=== PATIENT | female | born 1980 | race Caucasian/White ===

== ENCOUNTER 2022-07-24 04:45 | Emergency (ER) | payer BC, MEDICAID ==
[~2022-07-24] VITALS: Ht 157.5 cm; Wt 90.7 kg
[2022-07-24 04:45] VITALS: BP 146/84
--- NOTE | 2022-07-24 04:47 | NUR ---
PT GABY ALS. TAKEN TO BED 7
--- NOTE | 2022-07-24 04:59 | NUR ---
42/F BIBA FROM [facility] SEIZURES [id number] S/P MEDICATION CHANGE. PER PATIENT SHE WAS TAKING DILANTIN BUT PCP CHANGED PRESCRIPTION TO KEPPRA 2 WEEKS AGO. AFTER THE MEDICATION CHANGE PATIENT HAS BEEN HAVING SMALL 4-5SEC SEIZURES. LAST SEIZURE WAS PILOT [place] PATROL AT 3AM AND 4AM, BOTH LASTED 4SEC LONG ACCORDING TO SON. BLS STATED THAT PATIENT WAS "OUT OF IT" UPON ARRIVAL TO HOME. PATIENT AAOX4 AND AMBULATORY AT THIS TIME. DENIES SOB/CP/N/V/VISUAL CHANGES. PATIETN RR APPEAR TO BE EVEN AND UNLABORED. DOESNT APPEAR TO BE IN DISTRESS. PATIENT PLACED ON MONITOR WITH SEIZURE PRECAUTIONS INITIATED. BED LOW AND LOCKED. SIDE RAILS UP ZENIA FOR SAFETY. PMHX SEIZURE RX KEPPRA, MIRTAZAPINE(SLEEP) NKA
--- NOTE | 2022-07-24 05:13 | NUR ---
Dr. Edwards examining patient.
[2022-07-24 05:41] VITALS: BP 136/80
--- NOTE | 2022-07-24 05:41 | NUR ---
Patient discharged with v/s stable. Written and verbal after care instructions given SEIZURES and explained. Patient alert, oriented and verbalized understanding of instructions. Ambulatory with steady gait. All questions addressed prior to discharge. ID band removed. Patient advised to follow up with PMD.
--- NOTE | 2022-07-24 05:50 | NUR ---
The patient's care was reviewed and supervised by Yessica Farley RN.
== END 2022-07-24 05:41 | disposition home or self-care (01) ==
LOC: MED 04:45
DX: R56.9 Unspecified convulsions (principal); Z98.890 Other specified postprocedural states
CPT/HCPCS: 99283